=== PATIENT | male | born 1955 | race Caucasian/White ===

== ENCOUNTER 2017-09-15 15:56 | Emergency (ER) | payer OTHER ==
[~2017-09-15] VITALS: Ht 165.1 cm; Wt 75.7 kg
[~2017-09-15 15:56] MED LIST: CARB400T PO; LACO100T2 PO; LEVE500T9 PO; PHEN100C4 PO
--- NOTE | 2017-09-15 17:05 | NUR ---
PATIENT TO ED DT ABDOMINAL PAIN AND GENERALIZED WEAKNESS X LAST NIGHT. DENIES NAUSEA AND VOMITTING. PATIENT NOT IN DISTRESS. SKIN IS WARM TO TOUCH AND NON DIAPHORETIC. PATIENT IS AFEBRILE. VSS.
[2017-09-15 17:32] LABS: BASOPHILS # (AUTO) 0.1 /CMM (0.0-0.2); EOSINOPHILS % (AUTO) 0.1 % (0.0-6.0); HEMATOCRIT 47 % (39-51); HEMOGLOBIN 16.5 g/dL (13.5-17.5); LYMPHOCYTES # (AUTO) 0.7 /CMM (0.8-4.8); LYMPHOCYTES % (AUTO) 5.5 % (20.0-44.0); MEAN CORPUSCULAR HEMOGLOBIN 29 PG (26.0-33.0); MEAN CORPUSCULAR HGB CONC 35 g/dl (31.0-36.0); MEAN CORPUSCULAR VOLUME 83 fL (80-96); MONOCYTES # (AUTO) 0.4 /CMM (0.1-1.30); MONOCYTES % (AUTO) 3.3 % (2.0-12.0); NEUTROPHILS # (AUTO) 11.1 /CMM (1.8-8.9); NEUTROPHILS % (AUTO) 90.1 % (43.0-81.0); PLATELET COUNT (AUTO) 215 /CMM (150-450); RDW COEFFICIENT OF VARIATION 12.7 (11.5-15.0); RED BLOOD CELL COUNT(AUTO) 5.64 MIL/uL (4.5-6.0); WHITE BLOOD COUNT (AUTO) 12.3 K/uL (4.3-11.0)
[2017-09-15 17:49] LABS: ALBUMIN 3.6 g/dL (3.4-5.0); BILIRUBIN,TOTAL 0.2 mg/dL (0.2-1.0); CREATININE 1.3 mg/dL (0.6-1.3); POTASSIUM 4.1 mmol/L (3.5-5.1); TOTAL PROTEIN, SERUM 7.4 g/dL (6.4-8.2)
[2017-09-15] MEDS ORDERED: CIPROFLOXACIN HCL 250 MG TABLET ONE (18:56)
[2017-09-15] MEDS ORDERED: METRONIDAZOLE 500 MG TABLET ONE (18:56)
[2017-09-15] MEDS: METRONIDAZOLE 500 MG TABLET PO ONE (19:00)
[2017-09-15] MEDS: CIPROFLOXACIN HCL 250 MG TABLET PO ONE (19:00)
[2017-09-15 19:07] VITALS: BP 130/79
--- NOTE | 2017-09-15 19:07 | NUR ---
Patient discharged to home in stable condition. Written and verbal after care instructions given. Patient verbalizes understanding of instruction.IV removed. Catheter intact and site benign. Pressure and 4x4 applied to site. No bleeding noted.
== END 2017-09-15 19:09 | disposition home or self-care (01) ==
LOC: ER 15:57
DX: K52.9 Noninfective gastroenteritis and colitis, unspecified (principal)
CPT/HCPCS: 36415; 80048-TC; 80076-TC; 83690-TC; 85025-TC; A4606; Z7610

== ENCOUNTER 2019-07-21 22:47 | Inpatient (IN) | payer OTHER ==
[~2019-07-21] VITALS: Ht 170.2 cm; Wt 80.3 kg
--- NOTE | 2019-07-21 23:03 | NUR ---
BIBRELATIVE C/O GENERALIZED ABDOMINAL PAIN X1 DAY +NAUSEA, -VOMITTING TO ER BED 1 JEF HOWARD
[2019-07-21] MEDS ORDERED: ONDANSETRON HCL/PF 4 MG/2 ML VIAL ONE (23:25)
[2019-07-21] MEDS ORDERED: MORPHINE SULFATE INJ 4 MG/ML DISP.SYRIN ONE (23:26)
[2019-07-21] MEDS ORDERED: MORPHINE SULFATE INJ 2 MG/ML DISP.SYRIN IV ONE (23:30)
[2019-07-21] MEDS ORDERED: ONDANSETRON HCL/PF 4 MG/2 ML VIAL IVP ONE (23:30)
[2019-07-21] MEDS ORDERED: IV NS 0.9% 1,000 ML BAG IV ONE (23:30)
[2019-07-21 23:34] LABS: APPEARANCE,URINE Clear (CLEAR); BILIRUBIN,URINE Negative (NEGATIVE); BLOOD, URINE Negative Ery/uL (NEGATIVE); COLOR,URINE Yellow (YELLOW); KETONES,URINE Trace (NEGATIVE); LEUKOCYTE ESTERASE ,URINE Negative (NEGATIVE); NITRITE, URINE Negative (NEGATIVE); PROTEIN,URINE Trace mg/dl (NEGATIVE); UGLUCOSE Negative (NEGATIVE); UROBILINOGEN,URINE 0.2 EU/dL (0.2)
--- NOTE | 2019-07-21 23:51 | NUR ---
PT TAKEN TO RADIOLOGY
[2019-07-21 23:52] LABS: BASOPHILS # (AUTO) 0.1 /CMM (0.0-0.2); BASOPHILS % (AUTO) 0.7 % (0.0-2.0); HEMATOCRIT 50 % (39-51); HEMOGLOBIN 17.3 g/dL (13.5-17.5); LYMPHOCYTES # (AUTO) 1.2 /CMM (0.8-4.8); LYMPHOCYTES % (AUTO) 8.8 % (20.0-44.0); MEAN CORPUSCULAR HGB CONC 34 g/dl (31.0-36.0); MEAN CORPUSCULAR VOLUME 84 fL (80-96); MONOCYTES # (AUTO) 0.6 /CMM (0.1-1.30); MONOCYTES % (AUTO) 4.4 % (2.0-12.0); NEUTROPHILS # (AUTO) 11.9 /CMM (1.8-8.9); NEUTROPHILS % (AUTO) 86.1 % (43.0-81.0); PLATELET COUNT (AUTO) 278 /CMM (150-450); RED BLOOD CELL COUNT(AUTO) 5.98 MIL/uL (4.5-6.0); WHITE BLOOD COUNT (AUTO) 13.9 K/uL (4.3-11.0)
[2019-07-22 00:02] LABS: BACTERIA,URINE Few /HPF (None Seen); MUCUS,URINE Few /LPF (None Seen); SQUAMOUS EPITHELIAL CELL,UR Rare /HPF (None Seen); WBC,URINE 0-2 /HPF (0-3)
[2019-07-22 00:06] LABS: ALANINE AMINOTRANSFERASE 19 U/L (12-78); ALBUMIN 4.1 g/dL (3.4-5.0); ALKALINE PHOSPHATASE 102 U/L (46-116); ASPARTATE AMINOTRANSFERASE 20 U/L (15-37); BILIRUBIN,DIRECT 0.1 mg/dL (0.0-0.2); BILIRUBIN,TOTAL 0.4 mg/dL (0.2-1.0); CALCIUM, SERUM 9.6 mg/dL (8.5-10.1); CARBON DIOXIDE 26 mmol/L (21-32); CHLORIDE 103 mmol/L (98-107); CREATININE 1.3 mg/dL (0.6-1.3); GLUCOSE 184 mg/dL (74-106); LIPASE 81 U/L (73-393); POTASSIUM 3.5 mmol/L (3.5-5.1); SODIUM SERUM 141 mmol/L (136-145); TOTAL PROTEIN, SERUM 7.8 g/dL (6.4-8.2); UREA NITROGEN, BLOOD 20 mg/dL (7-18)
--- NOTE | 2019-07-22 01:39 | NUR ---
BED ASSIGNMENT 308-2
--- NOTE | 2019-07-22 02:07 | NUR ---
REPORT GIVEN TO HIRO MAYER FOR NELLY
[2019-07-22 02:20] VITALS: BP 159/79
--- NOTE | 2019-07-22 02:20 | NUR ---
MS QUALITY ASSURANCE NURSE NOTE RECEIVED PATIENT VIA GURNEY. AMBULATED TO BED WITH STEADY GAIT. A/O X3. ON OXYGEN 2L/MIN VIA NASAL CANNULA. RESPIRATIONS ARE EVEN AND UNLABORED. NO S/S SOB NOTED. NO C/O PAIN AT THIS TIME. IN NO APPARENT DISTRESS. NG TUBE PLACED IN RIGHT NARE 14 FR. POSITIVE PLACEMENT IN CXR. IV ACCESS IN LEFT HAND #20 PATENT BUT PATIENT STATES IT HURTS. INFORMED WILL PUT IN ANOTHER IV ACCESS. SPEECH LANGUAGE THERAPIST OBTAINED BELONGINGS LIST AND VITAL SIGNS. INITIAL ASSESSMENT COMPLETED AT THIS TIME. SKIN ASSESSMENT COMPLETED AT THIS TIME, PICTURES TAKEN AND PLACED IN CHART. MEDICATIONS REMOVED FROM BED SIDE AND SIGNED OVER TO NURSE TO GIVE TO PHARMACY IN AM. BED IS LOW AND LOCKED, HOB ELEVATED IN SEMI FOWLERS, SIDE RIALS UP X3, SEIZURE PRECAUTIONS IN PLACE. CALL LIGHT WITHIN REACH. WILL CONTINUE TO MONITOR.
[2019-07-22 02:54] VITALS: BP 151/79
[2019-07-22] MEDS ORDERED: MAGNESIUM HYDROXIDE 30 ML UDC PO PRN (03:00)
[2019-07-22] MEDS ORDERED: HYDROCODONE/APAP 5/325MG 1 EACH TABLET PO PRN (03:00)
[2019-07-22] MEDS ORDERED: ACETAMINOPHEN 325 MG TABLET PO PRN (03:00)
[2019-07-22] MEDS ORDERED: ZOLPIDEM TARTRATE 5 MG TABLET PO PRN (03:00)
[2019-07-22] MEDS ORDERED: ONDANSETRON HCL/PF 4 MG/2 ML VIAL IVP PRN (03:00)
[2019-07-22] MEDS ORDERED: MORPHINE SULFATE INJ 2 MG/ML DISP.SYRIN IV PRN (03:00)
[2019-07-22] MEDS ORDERED: MAG HYDROX/AL HYDROX/SIMETH 30 ML UDC PO PRN (03:00)
[2019-07-22] MEDS ORDERED: Z GUARD REMEDY 2 OZ OINT TP PRN (03:00)
[2019-07-22] MEDS: IV NS 0.9% 1,000 ML IV SCH ×3 (04:34→22:52)
--- NOTE | 2019-07-22 05:59 | NUR ---
MS RN NOTE CALLED MOTORBOAT MECHANIC HELPER , DR. MARTÍNEZ TO INFORM HIM PATIENT IS HERE FOR SBO OBSTRUCTION WITH NG TUBE BUT NO ORDER FOR LOW CONTINUOUS OF INTERMITTENT SUCTION. MD TELEPHONE ORDERED LOW INTERMITTENT SUCTION. ORDER READ BACK NOTED AND CARRIED OUT.
--- NOTE | 2019-07-22 06:46 | NUR ---
MS RN CLOSING NOTE PATIENT IN BED. A/O X3. REMAINS ON OXYGEN 2L/MIN VIA NASAL CANNULA. RESPIRATIONS ARE EVEN AND UNLABORED. NO SOB NOTED. NO C/O PAIN T/O SHIFT.NO DISTRESS. NG TUBE MAINTAINED IN RIGHT NARE TO LOW INTERMITTENT SUCTION, OUTPUT BLACK/BROWN, THIN, 200ML. IV ACCESS IN RFA#22 RUNNING NS @100ML/HR. BED REMAINS LOW AND LOCKED, HOB ELEVATED IN SEMI FOWLERS, SIDE RIALS UP X3, SEIZURE PRECAUTIONS IN PLACE. DVT PUMPS CONNECTED. CALL LIGHT WITHIN REACH. WILL ENDORSE TO NEXT SHIFT.
--- NOTE | 2019-07-22 07:30 | NUR ---
MS/RN Opening Note Received patient AO x 2-3, able to responds all stimuli. Denies pain or any nausea/vomit. Respiratory even and unlabored in room air. Skin is warm to touch, kept clean/dry, intact IV site running NS at 100 ml. Pt has NG suction on right nare and intact also. Kept in lock wheel and low position of the bed with elevated head of bed. Call light within reach, will continue to monitor.
[2019-07-22 08:00] VITALS: BP 122/74
[2019-07-22] MEDS ORDERED: CARBAMAZEPINE XR 400 MG TAB.SR.12H PO SCH ×2 (09:00)
[2019-07-22] MEDS ORDERED: LEVETIRACETAM (250 MG) 250 MG TABLET PO SCH (09:00)
[2019-07-22] MEDS ORDERED: LACOSAMIDE 50 MG TABLET PO SCH (09:00)
[2019-07-22] MEDS ORDERED: LEVE500T9 PO (09:55)
[2019-07-22] MEDS: LEVETIRACETAM (500MG) 1,500 MG in IV NS 0.9% 100 ML IV SCH ×2 (10:04→21:45)
[2019-07-22] MEDS: LACOSAMIDE 100 MG in IV NS 0.9% 50 ML IV SCH ×2 (10:05→20:35)
[2019-07-22] MEDS ORDERED: LACO200T2 PO (10:39)
--- NOTE | 2019-07-22 10:40 | NUR ---
BUSINESS EDUCATION PROFESSOR/MED RECON MED RECON UPDATED. INFO OBTAINED FROM THE PATIENT. PRIMARY RN AWARE.
[2019-07-22 11:06] LABS: BASOPHILS % (AUTO) 0.4 % (0.0-2.0); EOSINOPHILS % (AUTO) 0.5 % (0.0-6.0); HEMATOCRIT 46 % (39-51); HEMOGLOBIN 15.6 g/dL (13.5-17.5); LYMPHOCYTES # (AUTO) 1.8 /CMM (0.8-4.8); LYMPHOCYTES % (AUTO) 20.3 % (20.0-44.0); MEAN CORPUSCULAR HGB CONC 34 g/dl (31.0-36.0); MEAN CORPUSCULAR VOLUME 86 fL (80-96); MONOCYTES # (AUTO) 0.8 /CMM (0.1-1.30); MONOCYTES % (AUTO) 9.3 % (2.0-12.0); NEUTROPHILS # (AUTO) 6.2 /CMM (1.8-8.9); NEUTROPHILS % (AUTO) 69.5 % (43.0-81.0); PLATELET COUNT (AUTO) 198 /CMM (150-450); RED BLOOD CELL COUNT(AUTO) 5.39 MIL/uL (4.5-6.0); WHITE BLOOD COUNT (AUTO) 8.9 K/uL (4.3-11.0)
[2019-07-22 11:30] LABS: CREATININE 1.1 mg/dL (0.6-1.3); MAGNESIUM 1.7 mg/dL (1.8-2.4); PHOSPHORUS 2.6 mg/dL (2.5-4.9); POTASSIUM 3.5 mmol/L (3.5-5.1)
[2019-07-22 16:00] VITALS: BP 128/70
[2019-07-22] MEDS: Magnesium 1GM/D5W 100ML PREMIX 100 ML IV SCH ×2 (17:46→18:26)
--- NOTE | 2019-07-22 18:50 | NUR ---
MS/RN Closing Note Patient in bed, denies pain or nausea/vomit, skin is warm to touch, intact IV site, 300cc out from NG tube. Pharmacy mentioned there's no stock Tegretol and informed Dr. Hernandes. Respiratory even and unlabored in room air. Kept in locked wheel with low position of the bed and elevated head of bed foe secure airway. Call light within reach, will endorse mold shifter.
--- NOTE | 2019-07-22 19:00 | NUR ---
Spoke with radiology/Darren regarding small bowel follow through schedule, pt going procedure tomorrow around 9, 10 in the morning(according Darren).
--- NOTE | 2019-07-22 19:30 | NUR ---
MS RN OPENING NOTE RECEIVED PATIENT IN BED. A/O X3. TOLERATING ROOM AIR. RESPIRATIONS ARE EVEN AND UNLABORED. NO S/S SOB NOTED. NO C/O PAIN AT THIS TIME . IN NO APPARENT DISTRESS. NG TUBE PRESENT IN RIGHT NARE 14 FR CONNECTED TO LOW INTERMITTENT SUCTION, OUTPUT BLACK/BROWN, THIN. IV ACCESS IN RFA#22 RUNNING NS@100ML/HR. BED IS LOW AND LOCKED, HOB ELEVATED IN SEMI FOWLERS, SIDE RIALS UP X3, SEIZURE PRECAUTIONS IN PLACE. DVT PUMPS CONNECTED. CALL LIGHT WITHIN REACH. WILL CONTINUE TO MONITOR.
[2019-07-22 20:00] VITALS: BP 139/80
[2019-07-22] MEDS ORDERED: PHENYTOIN EXTENDED RELEASE 100 MG CAPSULE PO SCH (22:00)
[2019-07-22] MEDS ORDERED: PHENYTOIN SODIUM IV 50 MG/ML VIAL IV SCH (22:00)
[2019-07-22] MEDS ORDERED: phenytoin SODIUM IV 300 MG in IV NS 0.9% 50 ML IV SCH (22:00)
--- NOTE | 2019-07-22 22:53 | NUR ---
ms rn note called superintendent distribution , Dr. Stratton to inform him that the patient is refusing dilatan, seizure medication, that was scheduled for 2200. patient states he no longer takes dilantin nor tegretol and is now only taking vimpat and keppra. MD aware and ordered ok to DC medication and continue home regimen medication, vimpat and keppra. telephone order read back noted and carried out.
--- NOTE | 2019-07-23 06:17 | NUR ---
MS RN CLOSING NOTE PATIENT IN BED. A/O X3. REMAINS TOLERATING ROOM AIR. RESPIRATIONS ARE EVEN AND UNLABORED. NO SOB NOTED. NO C/O PAIN T/O SHIFT . NO DISTRESS. NG TUBE MAINTAINED IN RIGHT NARE 14 FR CONNECTED TO LOW INTERMITTENT SUCTION, OUTPUT BLACK/BROWN, THIN OUTPUT 50ML. IV ACCESS MAINTAINED IN RFA#22 RUNNING NS@100ML/HR. BED REMAINS LOW AND LOCKED, HOB ELEVATED IN SEMI FOWLERS, SIDE RIALS UP X3, SEIZURE PRECAUTIONS IN PLACE. DVT PUMPS CONNECTED. CALL LIGHT WITHIN REACH. WILL ENDORSE TO NEXT SHIFT
[2019-07-23 08:00] VITALS: BP 131/73
--- NOTE | 2019-07-23 08:00 | NUR ---
MS RN OPENING NOTE RECEIVED PATIENT IN BED. A/O X3. NO CARDIAC OR RESPIRATORY DISTRESS NOTED. NO SOB NOTED. SATURATING WELL ON ROOM AIR. BREATHING ARE EVEN AND UNLABORED. NO NO COMPLAINTS OF PAIN OR DISCOMFORT. NGTUBE TUBE IN PLACE, AUSCULTATED FOR PLACEMENT. NGTUBE NOTED WITH 14FR CONNECTED TO LOW INTERMITTENT SUCTION. NO OUT NOTED YET AT THIS TIME. IV ACCESS NOTED ON R FOREARM G22 WITH NS RUNNING AT 100ML/HR. TOLERATING IV FLUIDS WELL. PT CONTINUES TO BE NPO. PER MD ORDERS. EDUCATED PT TO KEEP NPO UNTIL FURTHER ORDERS BY MD. PT AGREED. SAFETY PRECAUTIONS IN PLACE, BED REMAINS LOW AND LOCKED, HOB ELEVATED IN SEMI FOWLERS >45 DEGREES, SIDE RIALS UP X3, SEIZURE PRECAUTIONS IN PLACE. DVT PUMPS CONNECTED. CALL LIGHT WITHIN REACH. WILL CONTINUE TO MONITOR.
[2019-07-23] MEDS: IV NS 0.9% 1,000 ML IV SCH ×2 (08:28→20:02)
[2019-07-23] MEDS ORDERED: DIATR MEGLU/DIATRIZOATE SODIUM 120 ML BOTTLE (GASTROGRAPHIN) ONE (08:58)
[2019-07-23] MEDS: LEVETIRACETAM (500MG) 1,500 MG in IV NS 0.9% 100 ML IV SCH ×2 (09:00→20:53)
[2019-07-23] MEDS ORDERED: Magnesium 1GM/D5W 100ML PREMIX 100 ML IV SCH (09:27)
[2019-07-23 10:00] LABS: BASOPHILS % (AUTO) 0.4 % (0.0-2.0); EOSINOPHILS % (AUTO) 1.4 % (0.0-6.0); HEMATOCRIT 31 % (39-51); HEMOGLOBIN 10.6 g/dL (13.5-17.5); LYMPHOCYTES # (AUTO) 1.2 /CMM (0.8-4.8); LYMPHOCYTES % (AUTO) 24.7 % (20.0-44.0); MEAN CORPUSCULAR HGB CONC 34 g/dl (31.0-36.0); MEAN CORPUSCULAR VOLUME 86 fL (80-96); MONOCYTES # (AUTO) 0.4 /CMM (0.1-1.30); NEUTROPHILS # (AUTO) 3.2 /CMM (1.8-8.9); NEUTROPHILS % (AUTO) 65.5 % (43.0-81.0); PLATELET COUNT (AUTO) 130 /CMM (150-450); RED BLOOD CELL COUNT(AUTO) 3.64 MIL/uL (4.5-6.0); WHITE BLOOD COUNT (AUTO) 4.9 K/uL (4.3-11.0)
[2019-07-23 10:03] LABS: CALCIUM, SERUM 6.6 mg/dL (8.5-10.1); CREATININE 0.9 mg/dL (0.6-1.3); POTASSIUM 3.1 mmol/L (3.5-5.1)
--- NOTE | 2019-07-23 10:15 | NUR ---
WOUND CARE CONSULT: PT PRESENTS WITH LEFT GREAT TOE INTACT BLISTER/CALLUS, PRESENT ON ADMISSION. RECOMMEND DPM CONSULT. DR MTOA NOTIFIED OF CONSULT REQUEST. PT IS INDEPENDENT WITH BED MOBILITY AND IS CONTINENT AT THIS TIME. WILL SEE PRN. RIOS IN AGREEMENT WITH PLAN OF CARE.
--- NOTE | 2019-07-23 10:30 | NUR ---
SMALL BOWEL FOLLOW THROUGH MEDIA AID CURRENTLY IN THE UNIT TO PERFORM SMALL BOWEL FOLLOW THROUGH. GASTROGAFIN ADMINISTERED VIA NG-TUBE. TOLERATED WELL.
[2019-07-23] MEDS: LACOSAMIDE 100 MG in IV NS 0.9% 50 ML IV SCH ×2 (10:33→21:51)
[2019-07-23] MEDS ORDERED: KEY,NONCONTROL,TO KEEP IN PYXI 1 EA MC ONE (10:37)
[2019-07-23] MEDS: POTASSIUM CL. PREMIX PERIPHER. 50 ML IV SCH ×4 (10:58→17:10)
[2019-07-23 11:14] LABS: BASOPHILS # (AUTO) 0.1 /CMM (0.0-0.2); BASOPHILS % (AUTO) 0.9 % (0.0-2.0); EOSINOPHILS % (AUTO) 1.1 % (0.0-6.0); HEMATOCRIT 42 % (39-51); HEMOGLOBIN 14.2 g/dL (13.5-17.5); LYMPHOCYTES # (AUTO) 1.4 /CMM (0.8-4.8); LYMPHOCYTES % (AUTO) 23.6 % (20.0-44.0); MEAN CORPUSCULAR HGB CONC 34 g/dl (31.0-36.0); MEAN CORPUSCULAR VOLUME 85 fL (80-96); MONOCYTES # (AUTO) 0.4 /CMM (0.1-1.30); MONOCYTES % (AUTO) 7.3 % (2.0-12.0); NEUTROPHILS # (AUTO) 4.1 /CMM (1.8-8.9); NEUTROPHILS % (AUTO) 67.1 % (43.0-81.0); PLATELET COUNT (AUTO) 182 /CMM (150-450); RED BLOOD CELL COUNT(AUTO) 4.93 MIL/uL (4.5-6.0); WHITE BLOOD COUNT (AUTO) 6.1 K/uL (4.3-11.0)
[2019-07-23 11:35] LABS: CALCIUM, SERUM 8.2 mg/dL (8.5-10.1); CREATININE 1.1 mg/dL (0.6-1.3); POTASSIUM 3.6 mmol/L (3.5-5.1)
[2019-07-23 11:43] LABS: ALBUMIN 3.2 g/dL (3.4-5.0); BILIRUBIN,TOTAL 0.4 mg/dL (0.2-1.0); MAGNESIUM 1.9 mg/dL (1.8-2.4); PHOSPHORUS 2.4 mg/dL (2.5-4.9); TOTAL PROTEIN, SERUM 6.4 g/dL (6.4-8.2)
--- NOTE | 2019-07-23 12:55 | NUR ---
IV RE-INSERTION R FOREARM IV ACCESS SITE WAS INFILTRATED. IV ACCESS REMOVED. APPLIED ICE PACK TO SITE, ELEVATED EXTREMETIED, MILD REDNESS NOTED ON R FOREARM. IV RE-INSERTED ON R ANTECUBITAL G24. TOLERATED IV INSERTION WELL. R AC G24 INTACT AND PATENT AND FLUSHING WELL.
--- NOTE | 2019-07-23 14:20 | NUR ---
IV REINSERTION IV SITE ON R AC GOT INFILTRATED ONCE AGAIN WHEN POTASSIUM WAS INFUSING. IV REINSERTED ON L FOREARM G22. TOLERATED IV INSERTION WELL. IV SITE INTACT AND PATENT AND FLUSHING WELL.
[2019-07-23] MEDS ORDERED: Sodium Phosphate 15 MMOL in IV NS 0.9% 245 ML IV SCH (15:00)
--- NOTE | 2019-07-23 15:00 | NUR ---
IV REINSERTION IV RE-INSERTED ON R AC G20. SUCCESSFUL. IV STARTED D/T MULTIPLE IVS INFUSING OR SCHEDULED AT ONCE. IV SITE INTACT AND PATENT AND FLUSHING WELL.
[2019-07-23 16:00] VITALS: BP 126/74
--- NOTE | 2019-07-23 17:30 | NUR ---
NGTUBE REINSERTED NGTUBE WAS ACCIDENTALLY PULLED OUT BY THE PT WHILE HE WAS IN THE BATHROOM. NGTUBE RE-INSERTED ON THE R NARES. 14 SLOVENIAN. TOLERATED PROCEDURE WELL. WILL ORDER FOR STAT CHEST XRAY TO CONFIRM FOR PLACEMENT.
--- NOTE | 2019-07-23 18:45 | NUR ---
CXRAY ROCÍO DONE AND COMPLETED TO CONFIRM NGT PLACEMENT. XRAY RESULTS SHOW THAT THE TIP OF THE NGT IS IN THE STOMACH. CONTINUED PT ON LOW INTERMITTENT SUCTION.
--- NOTE | 2019-07-23 19:00 | NUR ---
MS RN CLOSING NOTES PATIENT IN BED. A/O X3. NO CARDIAC OR RESPIRATORY DISTRESS NOTED. NO SOB NOTED. SATURATING WELL ON ROOM AIR. BREATHING ARE EVEN AND UNLABORED. NO NO COMPLAINTS OF PAIN OR DISCOMFORT. NGTUBE TUBE IN PLACE, AUSCULTATED FOR PLACEMENT. NGTUBE NOTED WITH 14FR CONNECTED TO LOW INTERMITTENT SUCTION. NO OUTPUT NOTED. . IV ACCESS NOTED ON R AC G20 AND L FOREARM G22. INTACT AND PATENT AND FLUSHING WELL. WITH NS RUNNING AT 100ML/HR. TOLERATING IV FLUIDS WELL. PT NOW ON A CLEAR LIQUID DIET. POTASSIUM REPLACED TODAY. SAFETY PRECAUTIONS IN PLACE, BED REMAINS LOW AND LOCKED, HOB ELEVATED IN SEMI FOWLERS >45 DEGREES, SIDE RIALS UP X3, SEIZURE PRECAUTIONS IN PLACE. DVT PUMPS CONNECTED. CALL LIGHT WITHIN REACH. WILL CONTINUE TO MONITOR.
[2019-07-23 19:30] VITALS: BP 137/88
--- NOTE | 2019-07-23 19:30 | NUR ---
MS RN OPENING NOTES PATIENT AWAKE IN BED. A/O X3. PATIENT ACCIDENTLY REMOVED NGT ON RIGHT NARE WHEN GETTING OUT OF BED. PATIENT DENIES N/V OR PAIN. NO DISTRESS NOTED. IV ON LEFT FA, SIZE 22, INTACT & PATENT WITH NS RUNNING AT 100 ML/HR. SAFETY MEASURES IN PLACE AND PATIENT'S NEEDS MET. BED LOCKED, SIDE RAILS X2 AND PADDED FOR PRECAUTION, HOB ELEVATED. WILL CONTINUE TO MONITOR.
[2019-07-23 20:04] VITALS: BP 137/88
--- NOTE | 2019-07-23 21:30 | NUR ---
MS RN NOTES MD MADE AWARE OF ACCIDENTAL REMOVAL OF NGT. PER JOSHUA ORTEGA, DO NOT NEED TO REINSERT NGT.
--- NOTE | 2019-07-24 03:00 | NUR ---
COUNSELLING PSYCHOLOGIST NOTES RECEIVED PATIENT FROM WALI BOSCH. WILL CONTINUE CARE.
--- NOTE | 2019-07-24 03:15 | NUR ---
MS RN NOTES PATIENT APPEARED TO HAVE AN EPISODE OF CONFUSION AND CHANGE OF MENTAL STATUS. AT THE TIME THE PATIENT SPEECH WAS SLURRED. AFTER ABOUT 20MINUTES HIS SPEECH RETURNED BACK TO BASELINE. NIHSS STROKE ASSESSMENT WAS COMPLETED AND SCORED 0. MD MADE AWARE. WILL CONTINUE TO MONITOR.
[2019-07-24] MEDS: IV NS 0.9% 1,000 ML IV SCH (05:44)
--- NOTE | 2019-07-24 06:25 | NUR ---
MS RN NOTES PATIENT REFUSED AM LABS. WILL TRY AGAIN LATER
--- NOTE | 2019-07-24 06:29 | NUR ---
MS RN NOTES PATIENT IN BED, ALERT AND ORIENTED X 3. BREATHING EVEN AND UNLABORED ON ROOM AIR. SHOWS NO SIGNS OF ACUTE RESPIRATORY DISTRESS, NO ACUTE PAIN. IV ON L FA 22G RUNNING NS AT 100ML/HR. SHOWS NO SIGNS OF INFILTRATION, NO REDNESS. ALL MEDICATIONS GIVEN. SAFETY PRECAUTIONS IN PLACE. BED IN LOWEST POSITION, LOCKED, AND CALL LIGHT KEPT WITHIN REACH. WILL ENDORSE TO ONCOMING NURSE.
--- NOTE | 2019-07-24 07:39 | NUR ---
MS RN OPENING NOTES RECEIVED PATIENT IN BED, AWAKE, A/O X3. PATIENT IS ON ROOM AIR; BREATHING IS EVEN AND UNLABORED; NO SOB NOTED AT THIS TIME. NO COMPLAINS OF PAIN. LFA IV ACCESS G # 22 PRESENT AND INTACT INFUSING NS AT 75 MLS/HR. SAFETY PRECAUTIONS IN PLACE; BED IN LOW POSITION AND LOCKED, RAILS UP X2, CALL LIGHT WITHIN REACH. WILL CONTINUE TO MONITOR PATIENT.
[2019-07-24 08:00] VITALS: BP 130/70
[2019-07-24] MEDS: LACOSAMIDE 100 MG in IV NS 0.9% 50 ML IV SCH (08:52)
[2019-07-24] MEDS ORDERED: IV NS 0.9% 1,000 ML IV PRN (09:00)
[2019-07-24] MEDS: LEVETIRACETAM (500MG) 1,500 MG in IV NS 0.9% 100 ML IV SCH (10:32)
--- NOTE | 2019-07-24 16:05 | NUR ---
MS GAUGER CHIEF NOTES PATIENT DISCHARGED HOME IN MEDICALLY STABLE CONDITION. LUNCH WAS TOLERATED WELL W/O ANY COMPLAINS OF ABDOMINLA PAIN, NAUSEA OR VOMITING. VS ALL WNL. DISCHARGE PAPERS DONE AND TEACHING PROVIDED; PATIENT VERBALIZED UNDERSTANDING. VALUABLES ACCOUNTED FOR AND FORM SIGNED. PICTURES TAKEN AND FILED. BEFORE LEAVING THE FLOOR PATIENT'S IV LINE WAS REMOVED AND WRISTBAND. PATIENT LEFT THE FLOOR AMBULATORY ACCOMPANIED BY RN. HE WAS PICKED UP BY HIS SISTER JEANNE IN A PRIVATE CAR.
== END 2019-07-24 16:00 | disposition home or self-care (01) | DRG 247 ==
LOC: ER 22:47 → MED 07-22 01:52
PROVIDERS: ADMIT Nurse Practitioner Acute Care; ATTEND Nurse Practitioner Acute Care
DX: K56.609 Unspecified intestinal obstruction, unspecified as to partial versus complete obstruction (principal); N17.0 Acute kidney failure with tubular necrosis; L89.896 Pressure-induced deep tissue damage of other site; E83.42 Hypomagnesemia; D72.829 Elevated white blood cell count, unspecified; G40.909 Epilepsy, unspecified, not intractable, without status epilepticus; Z79.899 Other long term (current) drug therapy; E86.0 Dehydration; K80.20 Calculus of gallbladder without cholecystitis without obstruction; R73.9 Hyperglycemia, unspecified; M79.672 Pain in left foot
CPT/HCPCS: 36415; 71045-TC; 74250-TC; 80048-TC; 80053-TC; 80061-TC; 80076-TC; 81000-TC; 83690-TC; 83735-TC; 84100-TC; 84484-TC; 85025-TC; 87081-TC; A4216; A9563; G0378; J1165; J1953; J2270; J2405; J3475; J3480; J7030; J7050; Q9963

== ENCOUNTER 2020-09-26 21:56 | Inpatient (IN) | payer MEDICARE, OTHER ==
[~2020-09-26] VITALS: Ht 165.1 cm; Wt 78.2 kg
[~2020-09-26 21:56] MED LIST changes: -CARB400T PO; +LACO200T2 PO; -PHEN100C4 PO
--- NOTE | 2020-09-26 22:59 | NUR ---
Pt bibsister c/o abd distention and pain x1day. Pt aaox3 breathing evenly and unlabored. Pt LBM was today, pt denies n/v. Pr tuvaluan speaking. Pt skin is warm and dry. LAC 18g initiated, blood obtained and sent to lab. Pt given blanket and call light within reach
--- NOTE | 2020-09-26 23:25 | NUR ---
DR MOSES AT BED SIDE
[2020-09-26] MEDS ORDERED: IV NS 0.9% 1,000 ML BAG IV ONE (23:30)
[2020-09-26] MEDS ORDERED: CT SWABBABLE VALVE TRANS SET 1 EA INFUS.SET MC ONE (23:30)
[2020-09-26] MEDS ORDERED: IOHEXOL-300 100 ML VIAL IV ONE (23:30)
[2020-09-26] MEDS ORDERED: IV NS 0.9% 250 ML IV ONE (23:31)
[2020-09-26 23:45] LABS: BASOPHILS # (AUTO) 0.1 K/uL (0.0-0.2); BASOPHILS % (AUTO) 1.1 % (0.0-2.0); EOSINOPHILS % (AUTO) 0.1 % (0.0-6.0); HEMATOCRIT 48 % (39-51); HEMOGLOBIN 16.3 g/dL (13.5-17.5); LYMPHOCYTES # (AUTO) 0.9 K/uL (0.8-4.8); LYMPHOCYTES % (AUTO) 6.6 % (20.0-44.0); MEAN CORPUSCULAR HGB CONC 34 g/dl (31.0-36.0); MEAN CORPUSCULAR VOLUME 85 fL (80-96); MONOCYTES # (AUTO) 0.6 K/uL (0.1-1.30); MONOCYTES % (AUTO) 4.8 % (2.0-12.0); NEUTROPHILS # (AUTO) 11.6 K/uL (1.8-8.9); NEUTROPHILS % (AUTO) 87.4 % (43.0-81.0); PLATELET COUNT (AUTO) 240 K/uL (150-450); RED BLOOD CELL COUNT(AUTO) 5.63 MIL/uL (4.5-6.0); WHITE BLOOD COUNT (AUTO) 13.3 K/uL (4.3-11.0)
[2020-09-26 23:54] LABS: CALCIUM, SERUM 8.7 mg/dL (8.5-10.1); CARBON DIOXIDE 21 mmol/L (21-32); CHLORIDE 104 mmol/L (98-107); CREATININE 1.3 mg/dL (0.6-1.3); GLUCOSE 240 mg/dL (74-106); SODIUM SERUM 140 mmol/L (136-145); UREA NITROGEN, BLOOD 20 mg/dL (7-18)
[2020-09-27 00:08] LABS: ALANINE AMINOTRANSFERASE 56 U/L (12-78); ALBUMIN 3.8 g/dL (3.4-5.0); ALKALINE PHOSPHATASE 107 U/L (46-116); ASPARTATE AMINOTRANSFERASE 34 U/L (15-37); BILIRUBIN,DIRECT 0.1 mg/dL (0.0-0.2); BILIRUBIN,TOTAL 0.3 mg/dL (0.2-1.0); LIPASE 104 U/L (73-393); TOTAL PROTEIN, SERUM 7.2 g/dL (6.4-8.2)
--- NOTE | 2020-09-27 01:23 | NUR ---
COVID SWAB SENT TO LAB
--- NOTE | 2020-09-27 02:29 | NUR ---
gave report to HIRO Howell for nick
[2020-09-27] MEDS ORDERED: IV LR 1000 ML 1,000 ML IV PRN (03:00)
[2020-09-27] MEDS ORDERED: Z GUARD REMEDY 2 OZ OINT TP PRN (03:00)
[2020-09-27] MEDS ORDERED: ACETAMINOPHEN 650 MG/SUPP.RECT RC PRN (03:00)
[2020-09-27] MEDS ORDERED: ONDANSETRON HCL/PF 4 MG/2 ML VIAL IVP PRN (03:00)
[2020-09-27 03:30] VITALS: BP 139/80
--- NOTE | 2020-09-27 03:30 | NUR ---
ADMISSION NOTE PATIENT ADMITTED FROM ER. DX SBO TO PRABHAK[facility] CAMPUZANO. NEW ORDERS RECIEVED PATIENT IS AXOX3 SPEAKS [place] CITIZ[place] PRIMARILY BUT UNDERSTANDS MOST [place]. ADMISSION ASSESSMENT TO BE PERFORMED. PATIENT IS IN NO APPARENT DISTRESS. RESP EVEN AND UNLABORED. HAS 18 GAUGE IV TO LEFT FOREARM FLUSHED PATENT AND INTACT. PATIENT ORIENTED TO ROOM. DEMONSTRATED USE OF CALL LIGHT PLACED WITHIN REACH. BED DOWN LOCKED SRX2 VERBALIZED UNDERSTANDING TO CALL FOR ASSISTANCE IF NEEDED.
[2020-09-27 03:54] VITALS: BP 139/80
[2020-09-27] MEDS: ENOXAPARIN SODIUM 40 MG/0.4 ML DISP.SYRIN SQ SCH ×2 (04:10→08:48)
--- NOTE | 2020-09-27 04:16 | NUR ---
message left for sandra huertas asking to clarify keppra iv dose per pharmacy request. awaiting return call.
[2020-09-27 08:00] VITALS: BP 114/91
--- NOTE | 2020-09-27 08:04 | NUR ---
MS RN OPENING NOTE PATIENT IS IN BED RESTING, PATIENT IS IN NO ACUTE DISTRESS. PATIENT IS ON ROOM AIR SATURATING WELL. SAFETY PRECAUTIONS ARE ON, BED IS LOCKED IN THE LOWEST POSITION WITH SIDE RAILS UP, CALL LIGHT WITHIN REACH. WILL CONTINUE TO MONITOR.
[2020-09-27] MEDS ORDERED: PANTOPRAZOLE 40 MG VIAL IV SCH (09:00)
[2020-09-27] MEDS ORDERED: LEVETIRACETAM (500MG) 1,000 MG in IV NS 0.9% 100 ML IV SCH (09:00)
[2020-09-27] MEDS ORDERED: LACOSAMIDE 50 MG TABLET PO SCH ×2 (09:00→22:00)
[2020-09-27] MEDS ORDERED: DIATR MEGLU/DIATRIZOATE SODIUM 120 ML BOTTLE (GASTROGRAPHIN) ONE (09:27)
--- NOTE | 2020-09-27 10:45 | NUR ---
RT ekg not done, pt went to xray. waiting for pt to return
--- NOTE | 2020-09-27 14:48 | NUR ---
MS RN NOTE PATIENTS NG-TUBE IS REMOVED, PATIENT TOLERATED PROCEDURE WELL.
--- NOTE | 2020-09-27 18:54 | NUR ---
MS RN CLOSING NOTE PATIENT IS IN BED RESTING, PATIENT IS IN NO ACUTE DISTRESS. PATIENT IS ON ROOM AIR SATURATING WELL. SAFETY PRECAUTIONS ARE ON, BED IS LOCKED IN THE LOWEST POSITION WITH SIDE RAILS UP, CALL LIGHT WITHIN REACH. ENDORSE PATIENT TO LAUNDRETTE OWNER NURSE FOR NELLY.
--- NOTE | 2020-09-27 19:30 | NUR ---
MS FIRE FIGHTER AIRPORT NOTE PT DISCHARGED HOME WITH SELF CARE AT THIS TIME. PT MEDICALLY STABLE AND CLEARED FOR DISCHARGE BY REFUGIO LIMA NP. ALL PT CARE, NEEDS, MEDICATIONS, AND TREATMENT ADMINISTERED ANTICIPATED PER ORDER. ALL DISCHARGE INSTRUCTIONS PROVIDED. PT VERBALIZED UNDERSTANDING. PT KEPT CLEAN AND DRY. BELONGINGS LIST ACCOUNTED FOR, SIGNED BY PT, AND WITH PT. ID BAND REMOVED, IV ACCESS REMOVED, PRESSURE APPLIED, AND SECURED WITH GAUZE AND TAPE. NO S/O BLEEDING OR INFILTRATION NOTED. PT IS AMBULATORY WITH STEADY GAIT, ACCOMPANIED TO LOBBY BY MANJULA ANN. HANNAH, CHARGE NURSE AND REFUGIO LIMA NP AWARE.
[2020-09-27] MEDS ORDERED: LEVETIRACETAM (500MG) 1,500 MG in IV NS 0.9% 100 ML IV SCH (21:00)
== END 2020-09-27 19:30 | disposition home or self-care (01) | DRG 389 ==
LOC: ER 22:01 → MED 09-27 01:59
PROVIDERS: ADMIT Registered Nurse; ATTEND Registered Nurse
DX: K56.699 Other intestinal obstruction unspecified as to partial versus complete obstruction (principal); E87.2 Acidosis; N17.9 Acute kidney failure, unspecified; G40.909 Epilepsy, unspecified, not intractable, without status epilepticus; E86.0 Dehydration; R41.9 Unspecified symptoms and signs involving cognitive functions and awareness; Z20.822 Contact with and (suspected) exposure to COVID-19; R53.1 Weakness
CPT/HCPCS: 36415; 71045-TC; 74250-TC; 80048-TC; 80076-TC; 83605-TC; 83690-TC; 85025-TC; 87081-TC; 93307-TC; C9113; C9803; G0378; J1650; J1953; J7030; J7050; J7120; Q9963; Q9967

== ENCOUNTER → 2020-12-13 | Emergency (ER) | payer MEDICARE, OTHER ==
[~2020-12-13] VITALS: Ht 165.1 cm; Wt 68.0 kg
--- NOTE | 2020-12-13 09:07 | NUR ---
BIB SISTER C/O URINARY RETENTION SINCE LAST NIGHT. UNABLE TO SIT DUE TO PAIN. PAIN IS A BURNING SENSATION AND IS RATED 8/10 IN SEVERITY. A&OX4. AMBULATORY. BREATHING IS EVEN AND UNLABORED. PULSES ARE 2+ BILATERALLY. SKIN IS WARM AND DRY. AMDOMEN IS DISTENDED AND TENDED TO PALPATION.
--- NOTE | 2020-12-13 09:09 | NUR ---
INSERTED ESTEVES CATHETER USING ASEPTIC TEHNIQUE. 1200 ML OF YELLOW URINE, NO ODOR NOTED.
--- NOTE | 2020-12-13 09:12 | NUR ---
PT ON MONITOR. VITALS ARE STABLE
--- NOTE | 2020-12-13 09:30 | NUR ---
URINE SAMPLE COLLECTED AND SENT TO LAB
[2020-12-13 10:46] LABS: BILIRUBIN,URINE NEGATIVE (NEGATIVE); COLOR,URINE OTHER (YELLOW); LEUKOCYTE ESTERASE ,URINE NEGATIVE (NEGATIVE); NITRITE, URINE NEGATIVE (NEGATIVE); PROTEIN,URINE NEGATIVE (NEGATIVE); UGLUCOSE NEGATIVE (NEGATIVE); UROBILINOGEN,URINE 0.2 EU/dL (0.2)
--- NOTE | 2020-12-13 11:18 | NUR ---
CATHETER BAG FULL. DRAINED 2000ML OF URINE.
--- NOTE | 2020-12-13 11:37 | NUR ---
AWAITING LAB RESULTS
[2020-12-13 12:01] LABS: BACTERIA,URINE None seen /HPF (None Seen); RBC,URINE 0-2 /HPF (0-2); SQUAMOUS EPITHELIAL CELL,UR Rare /HPF (None Seen); WBC,URINE NONE SEEN /HPF (0-3)
--- NOTE | 2020-12-13 12:29 | NUR ---
PT IS SLEEPING IN BED IN NO ACUTE DISTRESS. ATTACHED TO MONITOR. STABLE VITAL SIGNS.
--- NOTE | 2020-12-13 12:44 | NUR ---
Patient discharged to home in stable condition. Written and verbal after care instructions given. Patient verbalizes understanding of instruction.
[2020-12-13 12:45] VITALS: BP 126/68
== END | disposition home or self-care (01) ==
LOC: ER 08:53
DX: R33.9 Retention of urine, unspecified (principal); R10.30 Lower abdominal pain, unspecified; R00.0 Tachycardia, unspecified; G40.909 Epilepsy, unspecified, not intractable, without status epilepticus; Z79.899 Other long term (current) drug therapy
CPT/HCPCS: 81001